=== PATIENT | male | born 1990 | race Caucasian/White ===

== ENCOUNTER 2020-06-03 13:12 | Emergency (ER) | payer MEDICAID ==
[~2020-06-03] VITALS: Ht 190.5 cm; Wt 72.7 kg
[~2020-06-03 13:12] MED LIST: CEPH-357 PO; FLUT16SP11 NAS; HYDR1TAB PO; IBUP-1986 PO; LIDO20SO16 PO; MELA5TAB12 PO; MULT-785 PO; OMEG1CAP54 PO
[2020-06-03 13:17] VITALS: BP 121/82
--- NOTE | 2020-06-03 15:07 | NUR ---
[employer]FFEE SH[employer] AIDE IN ROOM TO APPLY BOOT AND CRUTCH TRAINING.
== END 2020-06-03 15:10 | disposition home or self-care (01) ==
LOC: ER 13:12
DX: M79.672 Pain in left foot (principal); E11.9 Type 2 diabetes mellitus without complications; G89.29 Other chronic pain; Z87.891 Personal history of nicotine dependence; Z72.89 Other problems related to lifestyle; Z91.018 Allergy to other foods; Z79.2 Long term (current) use of antibiotics; Z79.899 Other long term (current) drug therapy
CPT/HCPCS: 73610; 73630; 99284

== ENCOUNTER 2022-06-04 16:22 | Emergency (ER) | payer MEDICAID ==
[~2022-06-04] VITALS: Ht 190.5 cm; Wt 63.0 kg
[2022-06-04] MEDS ORDERED: tamsulosin 0.4mg capsule PO STA (17:01)
[2022-06-04] MEDS ORDERED: HYDROcodone/acetaminophen 5mg/325mg tablet PO ONE (17:05)
[2022-06-04] MEDS ORDERED: ondansetron/PF 4mg/2ml inj IV ONE (17:05)
[2022-06-04] MEDS ORDERED: normal saline 1000ML IV soln IVB ONE (17:05)
[2022-06-04] MEDS ORDERED: ketorolac trometh. 30mg/ml inj. IV ONE (17:05)
[2022-06-04] MEDS: morphine 4 MG/ML inj SYRINge IV PRN ×2 (17:24→19:13)
[2022-06-04 17:33] LABS: BASOPHILS % (AUTO) 0.1 % (0-1); EOSINOPHILS % (AUTO) 0 % (0-6); HEMATOCRIT 48.5 % (42.0-52.0); HEMOGLOBIN 16.4 g/dl (14.0-17.9); LYMPHOCYTES # (AUTO) 0.6 X10'3 (1.1-4.8); LYMPHOCYTES % (AUTO) 4.5 % (21-51); MEAN CORPUSCULAR HEMOGLOBIN 30.9 PG (27.0-31.0); MEAN CORPUSCULAR HGB CONC 33.7 g/dL (33.0-36.5); MEAN CORPUSCULAR VOLUME 91.6 FL (78-98); MONOCYTES # (AUTO) 0.8 X10'3 (0-0.9); MONOCYTES % (AUTO) 5.9 % (2-12); NEUTROPHILS # (AUTO) 11.4 X10'3 (1.8-7.7); NEUTROPHILS % (AUTO) 89.5 % (42-75); PLATELET COUNT 278 X10'3 (140-440); RED CELL DISTRIBUTION WIDTH 14.3 % (11.5-14.5); WHITE BLOOD COUNT 12.8 X10'3 (4.5-11.0)
[2022-06-04 17:39] LABS: ALANINE AMINOTRANSFERASE 17 U/L (12-78); ALBUMIN 4.9 G/DL (3.4-5.0); ALBUMIN/GLOBULIN RATIO 1.4 (1.1-1.5); ALKALINE PHOSPHATASE 76 IU/L (46-116); ANION GAP 8 (8-16); ASPARTATE AMINO TRANSFERASE 17 U/L (10-37); BILIRUBIN,TOTAL 1.6 MG/DL (0.1-1.0); BLOOD UREA NITROGEN 6 MG/DL (7-18); BUN/CREATININE RATIO 7.1 (5.4-32.0); CALCIUM 10.1 MG/DL (8.5-10.1); CHLORIDE 102 MMOL/L (99-107); CREATININE 0.84 MG/DL (0.60-1.10); GLUCOSE 140 MG/DL (70-104); POTASSIUM 4.1 MMOL/L (3.5-5.1); SODIUM 141 MMOL/L (135-145); TOTAL CARBON DIOXIDE 31.2 MMOL/L (24-32); TOTAL PROTEIN 8.4 G/DL (6.4-8.2); eGFR > 90 ML/MIN
[2022-06-04] MEDS ORDERED: HYDR-3965 PO (18:02)
[2022-06-04] MEDS ORDERED: ONDA4TAB12 PO (18:02)
[2022-06-04] MEDS ORDERED: FLO0.4C PO (18:02)
[2022-06-04] MEDS ORDERED: NAPR-56 PO (18:02)
[2022-06-04 18:43] LABS: CLARITY,URINE CLEAR (Clear); COLOR,URINE YELLOW (Yellow); GLUCOSE, URINE NEGATIVE (Neg); KETONES,URINE NEGATIVE (Neg); LEUKOCYTE ESTERASE ,URINE NEGATIVE (Neg); NITRITES, URINE NEGATIVE (Neg); OCCULT BLOOD,URINE TRACE-INTACT (Neg); PH,URINE 8.5 (4.8-8.0); PROTEIN,URINE TRACE mg/dl (Neg); UROBILINOGEN,URINE 0.2 E.U/dL (0.2-1.0)
[2022-06-04 18:56] LABS: UA COLLECTION TYPE CLN CATCH MIDSTREAM; WBC,URINE 0-4 /HPF (0-4)
[2022-06-04 18:57] LABS: BACTERIA,URINE FEW /HPF (Neg); SQUAMOUS EPITHELIAL CELL,UR FEW /LPF (FEW)
[2022-06-04] MEDS ORDERED: proCHLORperazine 10 MG/2 ml inj IV ONE (19:00)
[2022-06-04] MEDS ORDERED: morphine 4 MG/ML inj SYRINge IM ONE (19:00)
[2022-06-04 19:39] VITALS: BP 102/63
== END 2022-06-04 19:26 | disposition home or self-care (01) ==
LOC: ER 16:24
DX: N23 Unspecified renal colic (principal); N20.0 Calculus of kidney; R11.2 Nausea with vomiting, unspecified; G89.29 Other chronic pain; M54.9 Dorsalgia, unspecified; F31.9 Bipolar disorder, unspecified; Z88.8 Allergy status to other drugs, medicaments and biological substances; Z79.899 Other long term (current) drug therapy; Z79.1 Long term (current) use of non-steroidal anti-inflammatories (NSAID); Z79.2 Long term (current) use of antibiotics
CPT/HCPCS: 36415; 76770; 80053; 81001; 85025; 96361; 96374; 96375; 96376; 99285; J0780; J1885; J2270; J2405; J7030

== ENCOUNTER 2022-11-16 19:29 | Emergency (ER) | payer MEDICAID ==
[~2022-11-16] VITALS: Ht 190.5 cm; Wt 65.0 kg
[~2022-11-16 19:29] MED LIST changes: +ONDA4TAB12 PO
[2022-11-16] MEDS ORDERED: metoclopramide 5 mg/ml inj IV ONE (20:00)
[2022-11-16] MEDS ORDERED: normal saline 1000ML IV soln IV ONE (20:00)
[2022-11-16] MEDS ORDERED: capsaicin 0.025% 60gm cream TP ONE (20:00)
[2022-11-16] MEDS ORDERED: diphenhydrAMINE 50 mg/ml inj IM ONE (20:00)
[2022-11-16] MEDS ORDERED: CAPSAICIN 56.6 GM CREAM..G. TP ONE (20:05)
[2022-11-16] MEDS ORDERED: diphenhydrAMINE 50 mg/ml inj IV ONE (20:10)
[2022-11-16 20:15] LABS: BASOPHILS % (AUTO) 0.3 % (0-1); EOSINOPHILS % (AUTO) 0 % (0-6); HEMATOCRIT 46.5 % (42.0-52.0); HEMOGLOBIN 15.9 g/dl (14.0-17.9); LYMPHOCYTES # (AUTO) 0.8 X10'3 (1.1-4.8); LYMPHOCYTES % (AUTO) 13.4 % (21-51); MEAN CORPUSCULAR HEMOGLOBIN 30.9 PG (27.0-31.0); MEAN CORPUSCULAR HGB CONC 34.2 g/dL (33.0-36.5); MEAN CORPUSCULAR VOLUME 90.4 FL (78-98); MEAN PLATELET VOLUME 8.6 FL (7.4-10.4); MONOCYTES # (AUTO) 0.3 X10'3 (0-0.9); MONOCYTES % (AUTO) 5.2 % (2-12); NEUTROPHILS # (AUTO) 4.9 X10'3 (1.8-7.7); NEUTROPHILS % (AUTO) 81.1 % (42-75); PLATELET COUNT 207 X10'3 (140-440); RED BLOOD COUNT 5.15 X10'6 (4.70-6.10); RED CELL DISTRIBUTION WIDTH 13.9 % (11.5-14.5); WHITE BLOOD COUNT 6.1 X10'3 (4.5-11.0)
[2022-11-16 20:19] LABS: ALANINE AMINOTRANSFERASE 28 U/L (12-78); ALBUMIN 4.4 G/DL (3.4-5.0); ALBUMIN/GLOBULIN RATIO 1.2 (1.1-1.5); ALKALINE PHOSPHATASE 72 IU/L (46-116); ANION GAP 15 (8-16); ASPARTATE AMINO TRANSFERASE 22 U/L (10-37); BILIRUBIN,TOTAL 0.9 MG/DL (0.1-1.0); BLOOD UREA NITROGEN 10 MG/DL (7-18); BUN/CREATININE RATIO 13.7 (10.0-20.0); CALCIUM 9.5 MG/DL (8.5-10.1); CHLORIDE 99 MMOL/L (99-107); CREATININE 0.73 MG/DL (0.60-1.10); GLUCOSE 129 MG/DL (70-104); LIPASE 53 U/L (73-393); POTASSIUM 3.4 MMOL/L (3.5-5.1); SODIUM 140 MMOL/L (135-145); TOTAL CARBON DIOXIDE 25.7 MMOL/L (24-32); TOTAL PROTEIN 8.2 G/DL (6.4-8.2); eGFR > 90 ML/MIN
[2022-11-16] MEDS ORDERED: morphine 2 MG/ML inj. syringe IV ONE (21:30)
[2022-11-16] MEDS ORDERED: LORazepam 2 mg/ml vial IV ONE (21:30)
[2022-11-16 21:51] VITALS: BP 125/85
[2022-11-16] MEDS ORDERED: METO-292 PO (21:57)
[2022-11-16] MEDS ORDERED: CAPS42.514 TOP (21:57)
== END 2022-11-16 22:06 | disposition home or self-care (01) ==
LOC: ER 19:30
DX: R11.15 Cyclical vomiting syndrome unrelated to migraine (principal); R10.84 Generalized abdominal pain; E11.9 Type 2 diabetes mellitus without complications; G89.29 Other chronic pain; F17.200 Nicotine dependence, unspecified, uncomplicated; F12.90 Cannabis use, unspecified, uncomplicated; Z72.89 Other problems related to lifestyle; Z88.8 Allergy status to other drugs, medicaments and biological substances; Z91.018 Allergy to other foods; Z79.2 Long term (current) use of antibiotics; Z79.899 Other long term (current) drug therapy; Z87.442 Personal history of urinary calculi
CPT/HCPCS: 36415; 80053; 83690; 85025; 96361; 96374; 96375; 99284; J1200; J2060; J2270; J2765; J7030